=== PATIENT | male | born 1985 | race Caucasian/White ===

== ENCOUNTER → 2021-04-18 11:39 | Emergency (ER) | payer OTHER ==
[~2021-04-18 11:39] MED LIST: BACTRIM DS TAB1 EACH PO; FLOMAX 0.4 MG0.4 MG PO; ONDANSETRON ODT4 MG PO
[2021-04-18 12:16] LABS: BASOPHIL 0.2 % (0-2); HCT 50.6 % (42.0-52.0); HGB 17.8 g/dl (13.2-18.0); LYMPHOCYTE 49.1 % (15-48); MCH 29.2 pg (25.0-31.0); MCHC 35.2 g/dL (32.0-36.0); MCV 83.1 fL (78.0-100.0); MONOCYTE 7.7 % (0-12); MPV 10.5 fL (6.0-9.5); NEUTROPHIL 39.8 % (41-80); NRBC 0; PLT 190 K/uL (150-400); RBC 6.09 M/uL (4.70-6.00); RDW 12.5 % (11.5-14.0); WBC 5.4 K/uL (4.0-10.5)
[2021-04-18 12:20] LABS: INR 0.98 (0.9-1.2); PROTHROMBIN TIME 12.4 SECONDS (11.8-13.4)
[2021-04-18 12:21] LABS: PTT 26.5 SECONDS (24.4-34.7)
[2021-04-18 12:37] LABS: LACTIC ACID 0.9 mmol/L (0.4-1.9)
[2021-04-18 12:50] LABS: BILIRUBIN NEGATIVE (NEGATIVE); BLOOD 3+ Ery/uL (NEGATIVE); CLARITY CLEAR (CLEAR); COLOR YELLOW (YELLOW); GLUCOSE (U) NORMAL (NORMAL); LEUKOCYTES TRACE Leu/uL (NEGATIVE); NITRITE NEGATIVE (NEGATIVE); PROTEIN 1+ mg/dL (NEGATIVE); SPECIFIC GRAVITY >=1.030 (1.001-1.030); UROBILINOGEN 0.2 mg/dL (0.2-1.0); pH 5.5 (5.0-9.0)
[2021-04-18 12:58] LABS: ALBUMIN 4.4 g/dL (3.4-5.0); ALKALINE PHOSHATASE 90 U/L (46-116); ALT 32 U/L (16-63); AST 33 U/L (15-37); BILIRUBIN - TOTAL 1.5 mg/dL (0.2-1.0); BUN 14 mg/dL (7-18); BUN/CREAT RATIO (CALC) 15.2 RATIO; CHLORIDE 101 mmol/L (98-107); CO2 (BICARBONATE) 25 mmol/L (21-32); CREATININE 0.92 mg/dL (0.67-1.17); GLOBULIN (CALCULATION) 4.3 g/dL; GLUCOSE 122 mg/dL (74-106); POTASSIUM 4.4 mmol/L (3.5-5.1); TOTAL PROTEIN 8.7 g/dL (6.4-8.2)
[2021-04-18 13:01] LABS: MARIJUANA (THC) NEGATIVE (NEGATIVE)
[2021-04-18 13:02] LABS: AMPHETAMINES NEGATIVE (NEGATIVE); BARBITURATES NEGATIVE (NEGATIVE); ECSTASY (MDMA) POSITIVE (NEGATIVE); METHADONE NEGATIVE (NEGATIVE); OPIATES NEGATIVE (NEGATIVE); OXYCODONE NEGATIVE (NEGATIVE)
[2021-04-18 13:20] LABS: ACETAMINOPHEN (TYLENOL) < 2.0 ug/mL (10.0-30.0); C-REACTIVE PROTEIN <0.20 mg/dL (<=0.90)
[2021-04-18 13:25] LABS: BACTERIA 1+; URINARY RBC TNTC; URINARY WBC 20-50
[2021-04-18 16:44] LABS: CORONAVIRUS 2019 SARS-COV-2 POSITIVE (NEGATIVE); INFLUENZA A NAA NEGATIVE (NEGATIVE)
== END | disposition home or self-care (01) ==
LOC: FER 11:39
PROVIDERS: Emergency Medicine
DX: R41.82 Altered mental status, unspecified (principal); U07.1 COVID-19; R00.2 Palpitations; N13.2 Hydronephrosis with renal and ureteral calculous obstruction; F15.10 Other stimulant abuse, uncomplicated; J45.909 Unspecified asthma, uncomplicated
CPT/HCPCS: 36415; 36600; 70450; 71045; 80053; 80305; 81001; 82140; 82803; 83605; 84145; 84443; 84484; 85025; 85610; 85730; 86140; 87040; 87088; 93005; G0480; J2060; J7030; U0002